=== PATIENT | male | born 1965 | race Hispanic/Latino ===

== ENCOUNTER 2016-02-24 11:34 | Day surgery (SDC) | payer OTHER ==
[~2016-02-24] VITALS: Ht 175.3 cm; Wt 88.5 kg
--- NOTE | 2016-02-24 07:24 | PCM.HPANE ---
Patient Data Surgeon Admitting Provider: Attending Provider:Zion Mena MD Primary Care Physician:Aidan Other Provider:Ralph Drake Anesthesia Reason for Visit Injury Of Flexor Tendon Left Hand Ht/WT & BMI Height (Feet): 5 Height (Inches): 9 Weight (Kilograms): 88.45 Body Mass Index 28.00 Allergies Coded Allergies: clindamycin (Verified Adverse Reaction, Intermediate, Diarrhea, 02/24/16) Past Anesthesia History Anesthesia History: Denies:: Abnormal Airway, Anesthesia Reactions, Difficult Intubation, Fam Anesthesia Reaction Diabetes History Hx Diabetes?: No MRSA MRSA: No Medications Hypertension Medication: No Home Meds Incl Beta Nina: No Active Scripts Naproxen 500 Mg Apc851 Mg PO BID PRN For Pain #20 TABLET Ref 0 Prov:Ronal Jama 10/21/14 Reported Medications Bacitracin (Bacitracin Ointment)28.4 Gm Oint...g.1 Applic TP BID #1 TUBE Ref 0 02/23/16 Clindamycin 150 Mg [id number] Mg PO TID Ref 0 02/23/16 History History of ENT Problems?: No HEENT History: Denies:: Abnormal Airway Difficult Intubation Hx of Heart Problems?: No Cardiovascular History: Denies:: Congestive Heart Failure Hypertension Hx of Respiratory Problem?: No Respiratory History: Denies:: Asthma COPD Emphysema Oxygen Administration Tuberculosis Use of C-PAP Machine Hx Neurologic Problems?: No Neurological History: Denies:: CVA Multiple Sclerosis Parkinson's Disease Seizures Hx of GI Problems?: No Hx of Problems?: No Male Hx: Denies:: Prostate Problems Scrotal Mass Testicular Surgery Skin History: Denies:: History Skin Disorders? Pressure Ulcers Hx Musculoskeletal Problems?: Yes Musculoskeletal History: Positive for:: Musculoskeletal Trauma (crush injury to left hand current admission problem, middle finger) Hx of Psycho/Social Problems?: No Hx Surgeries?: Yes (right knee tendon repair) Hx Any Other Health Problems?: Yes Other History: Denies:: Cancer Thyroid Disease Hx Diabetes: No Hx Alcohol Use: YesHx Substance Use: No Stop/Bang Treated for Sleep Apnea?: No Do You Have a CPAP Machine?: No S-Snoring: Do You Snore Loudly: No T-Tired: feel tired, fatigued: No O-Obsered: Observed not breath: No P-Blood Pressure: treated: No B- Body Mass Index > 35 kg/m2: No A- Age over 50: Yes N- Neck Large Circumference: No G- Gender Male: Yes SHANNAN Total Score: 2 SHANNAN Risk Assessment: Low Risk, <3 Yes Risk Assessment Category Category 1A: Patient has history of documented sleep apnea, and HAS NOT received any narcotic, sedative or anesthesia administration during this stay. Category 1B: Patient has history of documented sleep apnea, and HAS received any narcotic , sedative or anesthesia administration during this stay Category 2: Patient has SUSPECTED Obstructive Sleep Apnea, and HAS received any narcotic , sedative or anesthesia administration during this stay. Category 3: Patient has SUSPECTED Obstructive Sleep Apnea and HAS NOT received narcotic, sedative or anesthesia administration during this stay. Category 4: Outpatient in Procedural Areas with known sleep apnea or who screen positive for High Risk via the STOP/BANG questionnaire. Exam Exam General Appearance: Alert, Oriented X3, Cooperative, No Acute Distress HEENT/AIRWAY: MP 2 Lungs: Clear to Auscultation, Normal Air Movement Heart: Exam Unremarkable, Regular Rate/Rhythm, No Murmurs/Rubs/Gallops Plan Impression Patient chart reviewed, patient interviewed and anesthestic plan with risks, benefits, and alternatives discussed, and informed consent obtained. ASA Physical Status: ASA2 Mod Systemic Disease Anesthetic Plan: GA Bene/Risks/Altern/Consents: Yes HP Complete Prior to Induction: Yes Nixon Hernandez MD Feb 24, 2016 07:24
[~2016-02-24 11:34] MED LIST: BACI28.4 TP; CLIN-77 PO; Clindamycin 900 mg/50 mL D5W IV ONE; Lactated Ringer's 1,000 ML IV SCH; NPR500T PO
[2016-02-24] MEDS ORDERED: Dexamethasone 4 mg/mL Inj ONE (11:35)
[2016-02-24] MEDS ORDERED: Ondansetron 2 mg/mL 2 mL Inj ONE (11:35)
[2016-02-24] MEDS ORDERED: fentaNYL-PF 50 mCg/mL 2 mL Inj ONE (11:35)
[2016-02-24] MEDS ORDERED: Clindamycin 900 mg/50 mL D5W Premix IV ONE ×2 (11:35→11:41)
[2016-02-24] MEDS ORDERED: Ketamine 10 mg/mL 20 mL Inj ONE (11:35)
[2016-02-24] MEDS ORDERED: Propofol 10,000 mCg/mL 20 mL Inj ONE (11:35)
[2016-02-24] MEDS ORDERED: Lactated Ringer's 1,000 ML IV ONE (14:32)
[2016-02-24] MEDS ORDERED: Lactated Ringer's 1,000 ML IV SCH (14:39)
[2016-02-24] MEDS ORDERED: Lactated Ringer's 500 ML IV PRN (14:39)
[2016-02-24] MEDS ORDERED: Ondansetron 2 mg/mL 2 mL Inj IVPUSH PRN (14:40)
[2016-02-24] MEDS ORDERED: Phenylephrine 10,000 mCg/mL Inj IVPUSH PRN (14:40)
[2016-02-24] MEDS ORDERED: MetoCLOpramide 5 mg/mL 2 mL Inj IVPUSH PRN (14:40)
[2016-02-24] MEDS ORDERED: EPHEDrine Sulfate 50 mg/mL Inj IVPUSH PRN (14:40)
[2016-02-24] MEDS ORDERED: fentaNYL-PF 50 mCg/mL 2 mL Inj IVPUSH PRN (14:40)
[2016-02-24] MEDS ORDERED: Dexamethasone 4 mg/mL Inj IVPUSH PRN (14:40)
[2016-02-24] MEDS ORDERED: HYDROmorphone 1 mg/mL Inj IVPUSH PRN (14:40)
[2016-02-24] MEDS ORDERED: Bacitracin Ointment Packet TOPICAL ONE (15:03)
[2016-02-24] MEDS ORDERED: oxyCODONE-Acetamin 5-325 mg Tablet PO PRN (15:45)
[2016-02-24 15:48] VITALS: BP 127/87; PULSE 70; RESP 12; O2SAT 96
[2016-02-24 15:55] VITALS: BP 133/96; PULSE 70; RESP 13; O2SAT 94
[2016-02-24 16:00] VITALS: BP 129/86; PULSE 67; RESP 14; O2SAT 96
[2016-02-24 16:05] VITALS: BP 129/89; PULSE 66; RESP 14; O2SAT 95
[2016-02-24 16:13] VITALS: BP 129/89; PULSE 66; RESP 14; O2SAT 95
[2016-02-24 17:15] VITALS: BP 120/80; PULSE 68; RESP 14; O2SAT 96
--- NOTE | 2016-02-25 07:46 | PCM.ANEP1 ---
Post Anesthesia Phase 1 PACU Phase 1 Assessment Anesthetic Administered: GA Level of Alertness: Awake, talking OHARA's with Equal Strength: Yes Pain: No Nausea or Vomiting: No Oxygen Delivery: Simple Mask Lungs: Clear to Auscultation, Normal Air Movement Dermatome Level: Full Sensation Nixon Hernandez MD Feb 25, 2016 07:46
--- NOTE | 2016-02-25 07:46 | PCM.ANEP2 ---
Post Anesthesia Evaluation ASA/CMS Post Anesthesia VS in Patient's Normal Range?: Yes Resp Stable; Airway Patent?: Yes CV Function & Hydration Stable: Yes Mental Status Recovered?: Yes Pain control Satisfactory?: Yes N/V Control Satisfactory?: Yes Nixon Hernandez MD Feb 25, 2016 07:46
--- NOTE | 2016-02-28 19:33 | OP ---
[address] [address] OPERATIVE REPORT PATIENT: CARMEN DAVE : 1965 MR#: [id number] ADMIT: 02/24/2016 JOB ID: [id number] DATE OF SURGERY: 02/24/2016 PREOPERATIVE DIAGNOSIS(ES): Left middle finger laceration with tendon injury. POSTOPERATIVE DIAGNOSIS(ES): Left middle finger laceration with flexor digitorum profundus laceration. PROCEDURE: 1. Advancement and repair of left middle finger flexor digitorum profundus, zone one. 2. Exploration of left middle finger with extension of laceration and subsequent repair. 3. Application of external forearm base dorsal blocking splint. SURGEON: Zion Mena MD. SHEET CUTTING OPERATOR: None. ANESTHESIA: General anesthesia. ESTIMATED BLOOD LOSS: Minimal. SPECIMEN: None. COMPLICATIONS: None apparent. INDICATIONS FOR PROCEDURE: This is a 51-year-old, male patient who sustained a crush injury to the left middle finger on February 11, 2016 when he tried to catch a falling metal pole. Patient noted inability to extend the finger. There is also a laceration on the volar aspect of the finger. I suspected laceration of the flexor tendon. At this point, exploration of the left middle finger and repair of lacerated tendon is indicated. PROCEDURE/FINDINGS: The patient was identified in the preoperative area and surgical site was marked. Patient was then taken back to the operating room and placed supine on the operating table. Appropriate time-outs were taken. General anesthesia was induced smoothly. Patient was then prepped and draped in the usual sterile manner. Local anesthesia was then infiltrated to the left middle finger along the neurovascular bundle in a dorsal ring block. This was done using 0.25% Marcaine. It was noted that patient has a healed, slightly oblique laceration just distal to the DIP crease on the middle finger. A Amie-type incision was then designed incorporating the laceration. Incision was made 1st around the portion of the laceration. Care was taken to remove the partially healed wound. The incision was then extended down to the PIP crease. I then deepened the incision down through the skin down to the underlying flexor apparatus with blunt and sharp dissection with a pair of tenotomy scissors. Care was taken to dissect the skin flap free of the neurovascular bundle. The skin flap was then retracted out of the way and sutured away for exposure. It was noted that the flexor digitorum profundus was lacerated. The proximal stump lysed just proximal to the A4 yoni. Distally, the distal stump was quite short. I had to extend the laceration distally for 0.5 cm to allow for exposure of the stump. I first turned my attention to the A4 yoni. It was slightly collapsed. I was not able to smoothly pass the stump through the A4 yoni. I used a hemostat as well as [place] elevator to try to stretch the yoni. Once this had been done, I passed a 4-0 nylon suture in a weave through the proximal stump. This was then passed underneath the A4 yoni. The stump was able to be pulled through the A4 yoni to the level of the DIP joint. Once this had been done, the flexor tendon was pinned in place. The distal end of the proximal stump was quite frayed, partly due to the trauma, partly due to the effort in passing under the A4 yoni. I 1st obtained a 4-0 Supramid suture. I weaved the suture in several directions to solidify the frayed portion back into a more manageable solid tendon. Once this had been done, a 4-0 looped Supramid suture was then used proximally and one distally to repair the tendon using a modified Hood 6 strand repair. Once this had been done, the tendon repair was felt to be secure. A layer of 5-0 Prolene cross weave was then placed at the tendon sleeve for further reinforcement. Once this had been done, I placed the finger through a full range of motion. Again, the repair felt to be quite secure. Tourniquet was released and hemostasis was obtained with electrocautery. The incision was then reapproximated using several 4-0 nylon horizontal mattress sutures. The patient's incision was then dressed. Patient was then placed into a well-padded dorsal blocking splint with the wrist and finger joint in slight flexion. The patient tolerated the procedure well. Needle count, sponge count, instrument counts were correct at the end of the procedure. Patient was extubated and transported to recovery in stable condition.
== END 2016-02-24 23:59 | disposition home or self-care (01) ==
LOC: SAS 11:34
PROVIDERS: ATTEND Plastic Surgery
DX: S66.123A Laceration of flexor muscle, fascia and tendon of left middle finger at wrist and hand level, initial encounter (principal)
CPT/HCPCS: 26370; J1100; J2250; J2405; J7120